=== PATIENT | female | born 1945 | race Two or more races ===

== ENCOUNTER → 2016-12-03 | Outpatient (CLI) | payer OTHER ==
--- NOTE | ~2016-12-03 | MY29 ---
[facility] A Service of [facility] RADIOLOGY TEXT RESULTS PATIENT: PARVEZ PARISH LOCATION: [facility] : 49 UNIT #: [id number] AGE: [address]: Israel Virgen MD SEX: F ORDER DR: [id number] [facility] [address]. [place], [place] [address] [id number] O MR#: [id number] Acc #: [id number] NAME: PARVEZ PARISH : 1945 SEX: F STUDY DATE/TIME: 12/03/2016 10:05 UNIT: [facility] ROOM: STUDY DESCRIPTION: [facility] SCREENING W/ CAD BILAT Attending Physician: Israel Virgen M.D. Referring Physician: Israel Virgen M.D. Ordering Physician: Israel Virgen M.D. Primary Care Physician: Israel Virgen M.D. MEDICAL IMAGING REPORT This report is preliminary unless electronic signature is present EXAM Bilateral digital screening mammogram with CAD. Date: 12/03/2016. HISTORY 71-year-old female with no personal or family history breast cancer or current complaints. Bilateral breast biopsies more than 25 years ago. COMPARISON Bilateral screening mammogram 11/20/2015. FINDINGS CC and MLO views were obtained of each breast utilizing digital technique and reviewed with an FDA-approved CAD device. Linear markers were placed over each breast denoting surgical scars. Heterogeneously dense fibroglandular tissue is present. No new or suspicious nodule is identified. Parenchymal pattern appears stable. Extensive benign round calcifications are present bilaterally. No suspicious clustered microcalcifications. No nonsurgical architectural distortion. IMPRESSION 1. BIRADS category 2. Benign findings. Routine bilateral screening mammogram is recommended in 1 year. Patients over the age of 40 are entered into a reminder system with target due date for the next mammogram. A result letter will be sent to the patient. BIRADS: 2 Benign findings. [facility] A Service [facility] RADIOLOGY TEXT RESULTS PATIENT: PARVEZ PARISH LOCATION: [facility] : 49 UNIT #: [id number] AGE: [address]: Israel Virgen MD SEX: F ORDER DR: Dictated by... Jennifer John M.D. THIS IS AN ELECTRONICALLY VERIFIED REPORT Jennifer John M.D. at 12/06/2016 8:49 AM LLH/lauryn TD: 12/03/2016 15:51 JOB #: [id number] MEDICAL IMAGING REPORT Page 1 of 1 COPY
== END | disposition home or self-care (01) ==
LOC: CWCC 09:45
DX: Z12.31 Encounter for screening mammogram for malignant neoplasm of breast (principal); Z98.890 Other specified postprocedural states
CPT/HCPCS: G0202